=== PATIENT | female | born 1950 | race African-American/Black ===

== ENCOUNTER 2019-08-11 05:36 | Inpatient (IN) ==
--- NOTE | 2019-08-11 05:48 | PROVIDER DOCUMENTATION ---
HPI-Respiratory General - General Chief Complaint: Shortness of Breath Stated Complaint: SOB/PASSED OUT Time Seen by Provider: 08/11/19 05:46 Source: patient Allergies/Adverse Reactions: Patient Allergies Allergy/AdvReac Type Severity Reaction Status Date / Time No Known Allergies Allergy Verified 06/05/19 09:14 Home Medications: Home Medication List Medication Instructions Recorded Confirmed Last Taken Type ATORVAstatin [Lipitor] 10 mg PO HS 12/20/16 08/11/19 12/20/16 History Furosemide [Lasix] 20 mg PO DIRECTED 12/20/16 08/11/19 12/24/16 History Latanoprost 1 drp BOTH EYES QHS 12/31/16 08/11/19 12/28/16 History Albuterol 2.5MG/Ipratrop 0.5MG 3 ml INH RTQ4H #120 neb 03/11/18 08/11/19 Unknown Rx [Duoneb (A & A)] Amlodipine [Norvasc] 2.5 mg PO DAILY #30 tab 03/11/18 08/11/19 Unknown Rx Losartan [Cozaar] 25 mg PO DAILY #30 tab 03/11/18 08/11/19 Unknown Rx Albuterol Sulfate Inhaler 2 puff INH Q6H PRN PRN #1 inhaler 06/05/19 08/11/19 Unknown Rx [Ventolin Hfa] Albuterol Sulfate [Albuterol 2 puff IN Q4H PRN 06/05/19 08/11/19 Unknown History Sulfate Hfa] Azithromycin [Zithromax] 250 mg PO DAILY #1 packet 06/05/19 08/11/19 Unknown Rx - History of Present Illness-Resp Nature of Presenting Problem: Patient is a 68 year old black female with history of COPD and asthma complaining of increasing sob and wheezing for past 1 week. Denies chest pain or productive cough. Review of Systems - Adult - REVIEW OF SYSTEMS - ADULT Constitutional: denies: chills, fever Eyes: reports: no symptoms reported Ears, Nose, Mouth & Throat: reports: see HPI Cardiovascular: denies: chest pain Respiratory: reports: shortness of breath, wheezing Gastrointestinal: reports: no symptoms reported Genitourinary: reports: no symptoms reported Musculoskeletal: reports: no symptoms reported Integumentary: reports: no symptoms reported Neurological: reports: no symptoms reported Psychiatric: reports: no symptoms reported Endocrine: reports: no symptoms reported Hematologic/Lymphatic: reports: no symptoms reported Allergic/Immunologic: reports: no symptoms reported All Other Systems: Reviewed and Negative Past History - Adult - PAST MEDICAL HISTORY-ADULT Review of Records: reports: Old Records Reviewed, Nursing Assessment Review, Medications Reviewed, Social history reviewed & non-contributory. Major Childhood Illnesses: reports: denies history Cardiovascular: reports: HTN, hyperlipidemia Respiratory: reports: asthma Gastrointestinal: reports: denies history Obstetrical/Gynecological: reports: denies history Genitourinary: reports: denies history Musculoskeletal: reports: denies history Neurological: reports: denies history Psychiatric: reports: denies history Endocrine/Immune: reports: denies history Other Conditions: reports: denies history - PRIOR SURGERIES/PROCEDURES Surgical/Procedure History: reports: hysterectomy - PRIOR HOSPITALIZATIONS Prior Hospitalizations: reports: none - IMMUNIZATION STATUS Childhood Immunizations: See Nurse Assessment Flu Vaccine: See Nurse Assessment - FAMILY HISTORY Family History: reviewed, not pertinent Physical Exam-General - PHYSICAL EXAM-ADULT Initial Vital Signs Reviewed: Yes - CONSTITUTIONAL General Appearance: alert, no apparent distress, obese - EYES Eyes: sunken eyes (clear) - HEAD, EARS, NOSE, MOUTH & THROAT HENMT: normocephalic/atraumatic, moist mucous membranes, normal ENT inspection - NECK Neck: full range of motion, supple - RESPIRATORY Respiratory: no accessory muscle use, decreased breath sounds, wheezing - CARDIOVASCULAR Cardiovascular: regular rate, rhythm - GASTROINTESTINAL (ABDOMEN) Abdominal Exam: soft, no organomegaly - LYMPHATIC Lymphatic: no adenopathy - MUSCULOSKELETAL Back Exam: no CVA tenderness Extremity: non-tender Peripheral Pulses: radial (R): 2+ - SKIN Integumentary: normal color, normal turgor - NEUROLOGIC Neurologic: grossly normal - PSYCHIATRIC Psych/Mental Status: oriented x 3, anxious Progress - PLAN OF CARE/RESULTS Progress/Plan/Lab Results: Vital Signs - 8 hr 08/11/19 05:40 08/11/19 06:03 08/11/19 06:50 Temperature 97.3 F L Pulse Rate 90 90 94 H Respiratory Rate 18 14 18 Blood Pressure 111/074 113/73 O2 Sat by Pulse Oximetry 87 L 95 95 08/11/19 07:54 08/11/19 09:16 Temperature Pulse Rate 87 90 Respiratory Rate 17 17 Blood Pressure 131/99 116/82 O2 Sat by Pulse Oximetry 97 100 Laboratory Results - last 24 hr 08/11/19 08/11/19 08/11/19 05:59 05:59 05:59 WBC 10.18 RBC 4.84 Hgb 13.6 Hct 43.3 MCV 89.5 MCH 28.1 MCHC 31.4 L RDW Std Deviation 14.5 Plt Count 317 MPV 9.7 Immature Gran % (Auto) 0.1 Neut % (Auto) 31.4 L Lymph % (Auto) 56.5 H [place] % (Auto) 8.6 Eos % (Auto) 3.0 Baso % (Auto) 0.4 Immature Gran # (Auto) 0.01 Neut # (Auto) 3.19 Lymph # (Auto) 5.75 H [place] # (Auto) 0.88 H Eos # (Auto) 0.31 Baso # (Auto) 0.04 PT INR PTT (Actin FS) D-Dimer, Quantitative Specimen Type Sample Site pH pCO2 pO2 HCO3 Base Excess Oxyhemoglobin ABG O2 Sat (Calculated) ABG O2 Saturation ABG Carboxyhemoglobin ABG Methemoglobin Oliverio Test A-a O2 Difference Total Hemoglobin Lactate Liter Flow Blood Gas Modality FiO2 % Sodium 137 Potassium 3.5 Chloride 103 Carbon Dioxide 20 L Anion Gap 14 BUN 12 Creatinine 0.9 Estimated GFR/1.73 m2 > 60 BUN/Creatinine Ratio 13 Glucose 208 H Calculated Osmolality 280 Calcium 8.3 L Total Bilirubin 0.20 AST 42 H ALT 45 H Alkaline Phosphatase 96 Troponin T < 0.010 [id number] Pept Total Protein 7.1 Albumin 3.9 Globulin 3.0 Albumin/Globulin Ratio 1.0 Plasma Lactate Urine Source Urine Color Urine Clarity Urine Turbidity Urine pH Ur Specific [place] Urine Protein Ur Glucose (Stick) Urine Ketones Ur Ketones (Stick) Urine Blood Urine Nitrite Urine Bilirubin Urine Urobilinogen Urobilinogen Dipstick Urine Leukocytes Urine WBC (Auto) Urine RBC (Auto) U Epithel Cells (Auto) Urine Bacteria (Auto) Urine Microscopic RBC Urine WBC Urine Microscopic WBC Ur Epithelial Cells Urine Crystals Urine Bacteria Urine Casts Urine Yeast Urine Glucose Influenza A (Rapid) Influenza B (Rapid) 08/11/19 08/11/19 08/11/19 05:59 05:59 05:59 WBC RBC Hgb Hct MCV MCH MCHC RDW Std Deviation Plt Count MPV Immature Gran % (Auto) Neut % (Auto) Lymph % (Auto) [place] % (Auto) Eos % (Auto) Baso % (Auto) Immature Gran # (Auto) Neut # (Auto) Lymph # (Auto) [place] # (Auto) Eos # (Auto) Baso # (Auto) PT 16.2 H INR 1.23 PTT (Actin FS) 26.0 D-Dimer, Quantitative 9.53 H Specimen Type Sample Site pH pCO2 pO2 HCO3 Base Excess Oxyhemoglobin ABG O2 Sat (Calculated) ABG O2 Saturation ABG Carboxyhemoglobin ABG Methemoglobin Oliverio Test A-a O2 Difference Total Hemoglobin Lactate Liter Flow Blood Gas Modality FiO2 % Sodium Potassium Chloride Carbon Dioxide Anion Gap BUN Creatinine Estimated GFR/1.73 m2 BUN/Creatinine Ratio Glucose Calculated Osmolality Calcium Total Bilirubin AST ALT Alkaline Phosphatase Troponin T [id number] Pept 143 Total Protein Albumin Globulin Albumin/Globulin Ratio Plasma Lactate Urine Source Urine Color Urine Clarity Urine Turbidity Urine pH Ur Specific [place] Urine Protein Ur Glucose (Stick) Urine Ketones Ur Ketones (Stick) Urine Blood Urine Nitrite Urine Bilirubin Urine Urobilinogen Urobilinogen Dipstick Urine Leukocytes Urine WBC (Auto) Urine RBC (Auto) U Epithel Cells (Auto) Urine Bacteria (Auto) Urine Microscopic RBC Urine WBC Urine Microscopic WBC Ur Epithelial Cells Urine Crystals Urine Bacteria Urine Casts Urine Yeast Urine Glucose Influenza A (Rapid) Influenza B (Rapid) 08/11/19 08/11/19 08/11/19 06:03 06:06 06:43 WBC RBC Hgb Hct MCV MCH MCHC RDW Std Deviation Plt Count MPV Immature Gran % (Auto) Neut % (Auto) Lymph % (Auto) [place] % (Auto) Eos % (Auto) Baso % (Auto) Immature Gran # (Auto) Neut # (Auto) Lymph # (Auto) [place] # (Auto) Eos # (Auto) Baso # (Auto) PT INR PTT (Actin FS) D-Dimer, Quantitative Specimen Type ARTERIAL Sample Site L RADIAL pH 7.36 pCO2 39 pO2 77 HCO3 22.4 Base Excess -3.1 L Oxyhemoglobin 94.8 L ABG O2 Sat (Calculated) 19.2 ABG O2 Saturation 99.2 ABG Carboxyhemoglobin 4.00 H ABG Methemoglobin 0.4 Oliverio Test YES A-a O2 Difference 74.0 Total Hemoglobin 14.4 Lactate 3.00 H Liter Flow 2.0 Blood Gas Modality CANNULA FiO2 % 28.0 Sodium Potassium Chloride Carbon Dioxide Anion Gap BUN Creatinine Estimated GFR/1.73 m2 BUN/Creatinine Ratio Glucose Calculated Osmolality Calcium Total Bilirubin AST ALT Alkaline Phosphatase Troponin T Iag-D-Ftsdlszipbb Pept Total Protein Albumin Globulin Albumin/Globulin Ratio Plasma Lactate 2.8 H Urine Source Urine Color Urine Clarity Urine Turbidity Urine pH Ur Specific [place] Urine Protein Ur Glucose (Stick) Urine Ketones Ur Ketones (Stick) Urine Blood Urine Nitrite Urine Bilirubin Urine Urobilinogen Urobilinogen Dipstick Urine Leukocytes Urine WBC (Auto) Urine RBC (Auto) U Epithel Cells (Auto) Urine Bacteria (Auto) Urine Microscopic RBC Urine WBC Urine Microscopic WBC Ur Epithelial Cells Urine Crystals Urine Bacteria Urine Casts Urine Yeast Urine Glucose Influenza A (Rapid) NEGATIVE Influenza B (Rapid) NEGATIVE 08/11/19 08/11/19 08/11/19 08:31 09:01 09:07 WBC RBC Hgb Hct MCV MCH MCHC RDW Std Deviation Plt Count MPV Immature Gran % (Auto) Neut % (Auto) Lymph % (Auto) [place] % (Auto) Eos % (Auto) Baso % (Auto) Immature Gran # (Auto) Neut # (Auto) Lymph # (Auto) [place] # (Auto) Eos # (Auto) Baso # (Auto) PT INR PTT (Actin FS) D-Dimer, Quantitative Specimen Type Sample Site pH pCO2 pO2 HCO3 Base Excess Oxyhemoglobin ABG O2 Sat (Calculated) ABG O2 Saturation ABG Carboxyhemoglobin ABG Methemoglobin Oliverio Test A-a O2 Difference Total Hemoglobin Lactate Liter Flow Blood Gas Modality FiO2 % Sodium Potassium Chloride Carbon Dioxide Anion Gap BUN Creatinine Estimated GFR/1.73 m2 BUN/Creatinine Ratio Glucose Calculated Osmolality Calcium Total Bilirubin AST ALT Alkaline Phosphatase Troponin T Grz-M-Jadmsiihfzd Pept Total Protein Albumin Globulin Albumin/Globulin Ratio Plasma Lactate 3.1 H Urine Source CLEAN CATCH Cancelled Urine Color YELLOW Cancelled Urine Clarity CLEAR Urine Turbidity Cancelled Urine pH 6.5 Cancelled Ur Specific [place] 1.015 Cancelled Urine Protein 30 A Cancelled Ur Glucose (Stick) Cancelled Urine Ketones NEGATIVE Ur Ketones (Stick) Cancelled Urine Blood TRACE A Cancelled Urine Nitrite NEGATIVE Cancelled Urine Bilirubin NEGATIVE Cancelled Urine Urobilinogen 0.2 Urobilinogen Dipstick Cancelled Urine Leukocytes Cancelled Urine WBC (Auto) Cancelled Urine RBC (Auto) Cancelled U Epithel Cells (Auto) Cancelled Urine Bacteria (Auto) Cancelled Urine Microscopic RBC <10 Urine WBC NEGATIVE Urine Microscopic WBC <10 Ur Epithelial Cells <10 Urine Crystals NONE SEEN Urine Bacteria NEGATIVE Urine Casts NONE SEEN Urine Yeast NONE SEEN Urine Glucose NEGATIVE Influenza A (Rapid) Influenza B (Rapid) Orders Category Date Time Status Cardiac Monitoring DIRECTED Care 08/11/19 05:48 Active Notify MD of + Sepsis Screen NOW Care 08/11/19 06:48 Active Notify Physician As Ordered Care 08/11/19 06:48 Active CHEST-PORTABLE [RAD] Stat Exams 08/11/19 05:[address] HEAD W/O CONTRAST [CT] Stat Exams 08/11/19 07:14 Completed CTA [CT ANGIOGRM PULMONARY ARTERIES] [CT] Stat Exams 08/11/19 08:22 Completed ABG [RESP] Routine Lab 08/11/19 06:06 Completed BLOOD CULTURE [BLDCUL] Stat Lab 08/11/19 06:43 Results CBC WITH ELECTRONIC DIFF [HEME] Stat Lab 08/11/19 05:59 Completed CMP [COMPREHENSIVE METABOLIC PANEL] [CHEM] Stat Lab 08/11/19 05:59 Completed D-DIMER [COAG] Stat Lab 08/11/19 05:[address] Stat Lab 08/11/19 06:03 Completed LACTATE, PLASMA [CHEM] Lab 08/11/19 06:43 Completed LACTATE, PLASMA [CHEM] Lab 08/11/19 09:07 Received LACTATE, PLASMA [CHEM] Lab 08/11/19 13:00 Uncollected PRO B-NATRIURETIC PEPTIDE Stat Lab 08/11/19 08:31 Ordered PROTIME WITH INR [COAG] Stat Lab 08/11/19 05:59 Completed PTT [COAG] Stat Lab 08/11/19 05:59 Completed TROPONIN T Stat Lab 08/11/19 05:59 Completed bnp [PRO B-NATRIURETIC PEPTIDE] Stat Lab 08/11/19 05:59 Completed 0.9% Sodium Chloride Inj [Ns] 1,000 ml Med 08/11/19 06:45 Discontinued IV 999 mls/hr Albuterol 2.5MG/Ipratrop 0.5MG [Duoneb (A & A)] Med 08/11/19 05:54 Discontinued 3 ml INH NOW ONE Azithromycin 500 mg/Ns [Zithromax 500 mg/Ns] Med 08/11/19 07:15 Discontinued 500 mg in 250 ml IV NOW CefTRIAXONE [Rocephin] 1 gm Med 08/11/19 06:46 Discontinued 0.9% Sodium Chloride Inj [Ns] 50 ml IV NOW Heparin Med 08/11/19 09:44 Discontinued 5,000 unit IV NOW ONE Heparin 25,000 Units/D5w Med 08/11/19 10:00 Active 25,000 unit in 250 ml IV 11.43 mls/hr Aerosol Treatments Routine Oth 08/11/19 05:54 Completed Aerosol Treatments Stat Oth 08/11/19 05:54 Completed Oxygen Device Stat Oth 08/11/19 05:46 Completed Pulse Oximetry Stat Oth 08/11/19 05:48 Completed EKG [EKG] Routine Ther 08/11/19 Draft Result Diagrams: 08/11/19 05:59 08/11/19 05:59 - REASSESSMENT Reassessment #1 Time Reassessed: 08:24 Status: improving (Seen and examined by me. Patient care discussed with Dr. Bowling at shift change. Patient has SOB, hypoxemia, possible pneumonia/sepsis, poss CHF, poss DVT. Patient reported syncopal episode this am with hitting head and "seeing stars" now. Has been given IVF, rocephin/zithromax.) Reassessment #2 Time Reassessed: 10:00 Status: improving (Patient developed a right Subconjunctival hematoma after coughing sepisode during CT. I did warn her (and informed hospitalist) that it will worsen on heparin. Patient started on heparin drip as she has multiple bilateral PEs and small saddle embolism.) - EKG 1 Time of EKG reading by physician:: 05:55 EKG Read and Signed by:: Bakari Bowling Rate: 91 Rhythm: NSR [place]: left Comments: no STEMI - XRAY 1 XRAY Study: Chest Impression: Abnormal ( EXAM: CHEST-PORTABLE - 08/11/2019 HISTORY: cough,sob TECHNIQUE: Portable chest COMPARISON: 06/05/2019 FINDINGS: Heart size appears the upper range of normal. There is prominence of central vascular markings. There is no dense consolidation, pleural effusion, or pneumothorax identified. IMPRESSION: Apparent central vascular congestion. No discrete pneumonia. Electronically signed by Khadar Orozco 08/11/2019 7:35 AM 08/11/19 0735 Interpreting Physician: Khadar Orozco MD Dictated Date/Time: 08/11/19 0789 cc: Bakari Bowling MD; Markos Dumont MD), See EMR Report - CT/MRI 1 CT Study: Head Impression: Normal, See EMR Report ( EXAM: CT HEAD W/O CONTRAST - 08/11/2019 HISTORY: head injury TECHNIQUE: CT head without contrast COMPARISON: None. FINDINGS: There are streak artifacts which limit detail at the base the brain. There is no evidence of intracranial hemorrhage, mass effect, midline shift, or hydrocephalus. There is no evidence of infarct, although acute infarcts may not be immediately visible. There is no evidence of skull fracture. Visualized portions of paranasal sinuses and mastoid air cells appear clear. IMPRESSION: Streak artifacts which limit detail at base of brain. No visible acute intracranial abnormality. This exam was performed using automated exposure control, adjustment of mA or kV according to patient size, and/or use of iterative reconstruction technique. Electronically signed by Khadar Orozco 08/11/2019 7:46 AM 08/11/19 [id number] Interpreting Physician: Khadar Orozco MD Dictated Date/Time: 08/11/19 0837 cc: Margarito Chambers MD; Markos Dumont MD) 2 CT Study: Angiogram Impression: Abnormal (EXAM: CT ANGIOGRAM PULMONARY ARTERIES - 08/11/2019 HISTORY: short of breath, syncope, elevated d-dimer TECHNIQUE: CT angiogram pulmonary arteries with intravenous contrast. Axial, coronal, and 3-D MIP images are obtained. COMPARISON: None. FINDINGS: There is a thin saddle embolus which extends across the branch point of the main pulmonary artery to the branch points of the right main and left main pulmonary arteries. There are pulmonary emboli at the branch points of the bilateral pulmonary arteries, with extension into the bilateral pulmonary artery branches. There is no indication of aortic dissection. The lungs appear essentially clear. There is no pleural effusion or pneumothorax identified. There is a large cyst noted at the upper right kidney. IMPRESSION: Bilateral pulmonary emboli. There is also a saddle embolus across the branch point of the main pulmonary artery. This report was discussed with Dr. Chambers on 08/11/2019 at 9:43 AM and was readback. Electronically signed by Khadar Orozco 08/11/2019 9:45 AM 08/11/19 [id number] Interpreting Physician: Khadar Orozco MD Dictated Date/Time: 08/11/19 0939 cc: Margarito Chambers MD; Markos Dumont MD), See EMR Report - CONSULTS/PCP/HOSPITALIST Notification #1 *Consult/PCP/Hospitalist*: Pinot Time Discussed: 10:03 Consult Disposition: Will see in ED, Admit - CHANGE OF SHIFT REPORT (ED Provider) 1 Report Given and Care Transferred to:: Dr. Chambers Time of Transfer: 07:00 Items Pending: Labs Departure - Departure Date of Disposition Decision: 08/11/19 Time of Disposition Decision: 10:03 DIAGNOSIS: Hypoxemia requiring supplemental oxygen, Syncope and collapse Acute pulmonary embolism without acute cor pulmonale Qualifiers: Pulmonary embolism type: saddle Qualified Code(s): I26.92 - Saddle embolus of pulmonary artery without acute cor pulmonale Subconjunctival hematoma Qualifiers: Laterality: right Qualified Code(s): H11.31 - Conjunctival hemorrhage, right eye Disposition: ADMITTED INPATIENT 09 Certified Medical Emergency: Emergent Condition: Critical Referrals and Follow-Ups: Markos Dumont MD [Primary Care Provider] - - Critical Care Note This patient required my direct & personal management of CC.: Yes Total Time (mins): 50 Critical Care Statement: This patient required my direct personal management to treat or rule out processes, the absence of which, could potentiallly result in sudden, clinically significant life or limb threatening deterioration. Attestation - Physician/ JESSICA Attestation Patient care was provided by Advanced Practice Provider:: No The physician spent face to face time with patient:: Yes Advanced Practice Provider documentation review:: Supervising physician onsite and consulted in the evaluation and care of this patient. The physician did have a face to face encounter with the patient.
[2019-08-11] MEDS ORDERED: DUONEB (A & A) INH ONE (05:54)
[2019-08-11 06:23] LABS: AGAP 14; ALBUMIN 3.9 g/dL (3.5-5.0); ALKALINE PHOSPHATASE 96 U/L (32-104); BUN 12 mg/dL (8-22); CALCIUM 8.3 mg/dL (8.8-10.2); CHLORIDE 103 mmol/L (98-107); COSMO 280; CREATININE 0.9 mg/dL (0.5-0.9); ESTIMATED GFR > 60; GLUCOSE 208 mg/dL (70-104); GOT 42 U/L (10-30); GPT 45 U/L (10-36); POTASSIUM 3.5 mmol/L (3.5-5.1); SODIUM 137 mmol/L (136-145); TCO2 20 mmol/L (25-35); TOTAL PROTEIN 7.1 g/dL (6.3-8.3)
[2019-08-11 06:26] LABS: BASO# 0.04 X1000 (0.0-0.2); BASO% 0.4 % (0.0-0.8); EOS# 0.31 X1000 (0.0-0.7); HEMATOCRIT 43.3 % (37.0-47.0); HEMOGLOBIN 13.6 g/dL (12.0-16.0); IMM GRAN# 0.01 X1000 (0.0-0.04); IMM GRAN% 0.1 % (0.0-0.5); LYMPH# 5.75 X1000 (1.2-3.4); LYMPH% 56.5 % (20.5-51.1); MCH 28.1 PG (27-31); MCHC 31.4 g/dL (33-37); MCV 89.5 FL (81-99); MONO# 0.88 X1000 (0.11-0.59); MONO% 8.6 % (1.7-9.3); MPV 9.7 FL (7.4-10.4); NEUT# 3.19 X1000 (1.4-6.5); NEUT% 31.4 % (42.2-75.2); PLT 317 X1000 (130-400); RBC 4.84 XMIL (4.2-5.4); RDW 14.5 % (11.5-14.5); WBC 10.18 X1000 (4.8-10.8)
[2019-08-11 06:30] LABS: BE -3.1 mmoll (-3.0-3.0); BLOOD TYPE ARTERIAL; HCO3-(ACT) 22.4 mmoll (20.0-26.0); METHB 0.4 % (0.0-1.5); O2(CT) 19.2 mL/dL (15.0-23.0); O2HB 94.8 % (95.0-99.0); PCO2(98.6) 39 mmHg (35-45); PO2(98.6) 77 mmHg (60-100); SAMPLE BLOOD; SAO2 99.2 % (95.0-100.0); THB 14.4 g/dL (11.5-17.4); pH(98.6) 7.36 (7.35-7.45)
[2019-08-11 06:32] LABS: ALLEN TEST YES; MODALITY CANNULA
[2019-08-11 06:44] LABS: INFLUENZA A NEGATIVE (NEGATIVE); INFLUENZA B NEGATIVE (NEGATIVE)
[2019-08-11] MEDS ORDERED: NS 1,000 ML IV ONE (06:45)
[2019-08-11] MEDS ORDERED: ROCEPHIN 1 GM in NS 50 ML IV ONE (06:46)
[2019-08-11 07:02] LABS: INR 1.23; PROTIME 16.2 Seconds (11.0-16.0)
[2019-08-11] MEDS ORDERED: ZITHROMAX 500 MG/NS 500 MG/250 ML IVPB IV ONE (07:15)
--- NOTE | 2019-08-11 07:38 | Diag Imaging Result Doc PS360 ---
EXAM: CHEST-PORTABLE - 08/11/2019 HISTORY: cough,sob TECHNIQUE: Portable chest COMPARISON: 06/05/2019 FINDINGS: Heart size appears the upper range of normal. There is prominence of central vascular markings. There is no dense consolidation, pleural effusion, or pneumothorax identified. IMPRESSION: Apparent central vascular congestion. No discrete pneumonia. Electronically signed by Khadar Orozco 08/11/2019 7:35 AM
--- NOTE | 2019-08-11 07:48 | Diag Imaging Result Doc PS360 ---
EXAM: CT HEAD W/O CONTRAST - 08/11/2019 HISTORY: head injury TECHNIQUE: CT head without contrast COMPARISON: None. FINDINGS: There are streak artifacts which limit detail at the base the brain. There is no evidence of intracranial hemorrhage, mass effect, midline shift, or hydrocephalus. There is no evidence of infarct, although acute infarcts may not be immediately visible. There is no evidence of skull fracture. Visualized portions of paranasal sinuses and mastoid air cells appear clear. IMPRESSION: Streak artifacts which limit detail at base of brain. No visible acute intracranial abnormality. This exam was performed using automated exposure control, adjustment of mA or kV according to patient size, and/or use of iterative reconstruction technique. Electronically signed by Khadar Orozco 08/11/2019 7:46 AM
--- NOTE | 2019-08-11 08:32 | EKG Report ---
Test Performed on : 08/11/2019 05:54:16 AM Test Reason : ER Blood Pressure : / mmHG Vent. Rate : 091 BPM Atrial Rate : 091 BPM P-R Int : 138 ms QRS Dur : 112 ms QT Int : 428 ms P-R-T Axes : 041 -32 026 degrees QTc Int : 526 ms Poor data quality, interpretation may be adversely affected Normal sinus rhythm. Left axis deviation Right bundle branch block Abnormal ECG When compared with ECG of 05-MAR-2018 07:35, Right bundle branch block is now present Unconfirmed Result
[2019-08-11 09:11] LABS: URINE SOURCE CLEAN CATCH
[2019-08-11 09:16] LABS: COLOR YELLOW; URINE BACTERIA NEGATIVE /HFP; URINE CAST NONE SEEN /LPF; URINE CRYSTAL NONE SEEN /HPF; URINE EPITHELIAL CELLS <10 /HPF (<10); URINE RBC <10 /HPF (<10); URINE WBC <10 /HPF (<10); URINE YEAST NONE SEEN /HPF
[2019-08-11 09:17] LABS: CLARITY CLEAR (CLEAR)
[2019-08-11 09:18] LABS: GLUCOSE URINE NEGATIVE (NEGATIVE); SP GRAVITY URINE 1.015
[2019-08-11 09:19] LABS: BLOOD URINE TRACE (NEGATIVE); PH URINE 6.5
[2019-08-11 09:20] LABS: PROTEIN URINE 30 mg/dL (NEGATIVE)
[2019-08-11 09:22] LABS: BILIRUBIN URINE NEGATIVE (NEGATIVE)
[2019-08-11 09:24] LABS: NITRITE URINE NEGATIVE (NEGATIVE); UROBILINOGEN URINE 0.2 EU/dL (0.2-1.0)
[2019-08-11 09:25] LABS: LEUKOCYTES URINE NEGATIVE (NEGATIVE)
[2019-08-11 09:26] LABS: KETONE URINE NEGATIVE (NEGATIVE)
[2019-08-11] MEDS ORDERED: HEPARIN IV ONE (09:44)
--- NOTE | 2019-08-11 09:47 | Diag Imaging Result Doc PS360 ---
EXAM: CT ANGIOGRAM PULMONARY ARTERIES - 08/11/2019 HISTORY: short of breath, syncope, elevated d-dimer TECHNIQUE: CT angiogram pulmonary arteries with intravenous contrast. Axial, coronal, and 3-D MIP images are obtained. COMPARISON: None. FINDINGS: There is a thin saddle embolus which extends across the branch point of the main pulmonary artery to the branch points of the right main and left main pulmonary arteries. There are pulmonary emboli at the branch points of the bilateral pulmonary arteries, with extension into the bilateral pulmonary artery branches. There is no indication of aortic dissection. The lungs appear essentially clear. There is no pleural effusion or pneumothorax identified. There is a large cyst noted at the upper right kidney. IMPRESSION: Bilateral pulmonary emboli. There is also a saddle embolus across the branch point of the main pulmonary artery. This report was discussed with Dr. Chambers on 08/11/2019 at 9:43 AM and was readback. Electronically signed by Khadar Orozco 08/11/2019 9:45 AM
[2019-08-11] MEDS ORDERED: HEPARIN 25,000 UNITS/D5W 25,000 UNIT/250 ML IV.SOLN IV SCH (10:00)
[2019-08-11] MEDS: LOVENOX SUBQ SCH ×2 (10:43→23:44)
[2019-08-11] MEDS ORDERED: TYLENOL PO PRN (11:35)
[2019-08-11] MEDS ORDERED: ZOFRAN IV PRN (11:35)
--- NOTE | 2019-08-11 12:22 | HISTORY AND PHYSICAL ---
PRIMARY CARE PROVIDERS: Markos Dumont MD CHIEF COMPLAINT: Shortness of breath, fell out. HISTORY OF PRESENT ILLNESS: Ms. Estrella is a 68-year-old female with past medical history of asthma, hypertension, hyperlipidemia, glaucoma who reports that she has been short of breath for a week a week or so, but it was shortness of breath that was unusual from her usual shortness of breath. It was not relieved by her inhalers. Then on Sunday, she began to start experiencing weakness and feeling like she was going to pass out. She was at work this morning around 5 a.m. She reports that she did pass out because she could not breathe. She was brought in to the ED where a full workup was done. Chest x-ray showed apparent central vascular congestion but no pneumonia. Head CT showed streak artifacts which limit the detail at the base of the brain, but there were no visible acute intracranial abnormalities. Blood work showed no white count. She did have elevated plasma lactate with no clear source of infection. She did have an elevated D-dimer at 9.53, which prompted a CTA of the chest that showed bilateral PEs as well as saddle embolus across the branch point of the main pulmonary artery. She was initiated on full-dose Lovenox and will continue on full-dose Lovenox b.i.d. and we will do a hypercoagulable workup. She reports no recent travel. No surgeries. However, she does sit for a prolonged time. At work, as well as at home. She is not very active secondary to her asthma. We will also get an echocardiogram as well as venous Dopplers to rule out DVT. However, she denies any calf tenderness. Continue with further evaluation and treatment. PAST MEDICAL HISTORY: As per HPI. PAST SURGICAL HISTORY: Cervical surgery. SOCIAL HISTORY: She lives at home with her daughter. She was a 2-3 cigarette smoker per day for more than 40 years. No alcohol or illicit drug use. 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 FAMILY HISTORY: No history of any blood clots or PE. REVIEW OF SYSTEMS: Completely negative except for those mentioned in HPI. The patient is positive for shortness of breath that is more than her normal for about a week or so. Her wheezing was relieved by her inhalers. She has had a feeling of weakness and passing out. She did report that she passed out at work this a.m. No chest pain. No heart palpitation. No abdominal pain. No nausea, vomiting, diarrhea. No calf pain. ALLERGIES: No known allergies. HOME MEDICATIONS: 1. Latanoprost 1 drop both eyes daily. 2. Albuterol sulfate 2 puffs inhaled q.4 hours p.r.n. shortness of breath. 3. Lasix 20 mg p.o. as directed. 4. Lipitor 10 mg p.o. at bedtime. 5. Cozaar 25 mg p.o. daily. 6. DuoNeb 3 mL inhaled q.4 hours. 7. Ventolin 2 puffs inhaled q.6 hours p.r.n. PHYSICAL EXAMINATION: VITAL SIGNS: Temperature is 98.7 degrees, heart rate 87, respirations 18, blood pressure 121/98. O2 is 98% on 2 L nasal cannula initially 87% on room air. GENERAL: Ms. Estrella is a pleasant 68-year-old female who is sitting up in the bed in no acute distress. HEENT: Atraumatic, normocephalic. PERRL. She does have a hemorrhage to her right conjunctiva. Mucous membranes are moist. NECK: Supple. Trachea midline. No JVD. CARDIOVASCULAR: S1, S2 appreciated. No murmurs, gallops, or rubs noted. RESPIRATORY: Lung sounds clear bilaterally. Bilaterally decreased in the bases. ABDOMEN: Obese, soft, nontender, nondistended. Positive bowel sounds 4 quadrants. EXTREMITIES: Generalized lower extremity edema, right greater than left around the ankle. There is no pitting. SKIN: Warm, dry and intact. DIAGNOSTIC DATA: Per HPI. LABORATORY DATA: White count 10, hemoglobin and hematocrit 13 and 43, platelet count is 317,000. D-dimer 9.53. Sodium 137, potassium 3.5, BUN 12, creatinine 0.9, blood glucose is 208, AST 42, ALT 45. Troponin less than 0.010, plasma lactate is 2.8 and 3.1. Urinalysis negative for nitrates, negative for bacteria. Flu A and B negative. ASSESSMENT AND PLAN: 1. Bilateral pulmonary embolus with saddle embolus. The patient was initiated on full dose Lovenox b.i.d. We will do a full hypercoagulable workup. Check echocardiogram. Venous Dopplers, supplemental O2. Bed rest for 24 hours. She reports no recent travels. No recent surgeries. No history of deep venous thrombosis, pulmonary embolus or family history of any hypercoagulable disorders. She does report that she does sit at work as well as at home for long periods of time. She does lead a very sedentary line. We will see if she is up-to-date on cancer screenings as well. 2. Syncopal episode at work. The patient is now awake, alert, and oriented, hemodynamically stable. Head CT was negative. 3. Hypoxemia upon arrival, improved with supplemental O2. History of asthma. She does not appear to be in exacerbation. We will provide her with DuoNeb p.r.n. 4. Hypertension. We will start any antihypertensives in the a.m. Watch her blood pressures closely. 5. Right conjunctival hemorrhage. Aware. 6. Hyperlipidemia continue statin. 7. Glaucoma. Continue eye drops. 8. Hyperglycemia. We will check hemoglobin A1c. Patient is not a known diabetic. 9. Tobacco use history. 10. Further recommendation to follow physician evaluation, laboratory and diagnostic data. Dictated by JORGE Byrne for Yuriy Merritt MD cc: MD Markos Delgado MD
[2019-08-11] MEDS ORDERED: PNEUMOVAX 23 IM ONE (13:00)
--- NOTE | 2019-08-11 13:03 | HISTORY AND PHYSICAL ---
ADDENDUM: SUBJECTIVE: The patient has no major complaints. OBJECTIVE: Vital Signs: Blood pressure 142/78, heart rate of 88, respiratory rate 21, temperature 97.8 degrees, saturating 100% on 3 L. Cardiovascular: Regular rate and rhythm. Pulmonary: Bilateral breath sounds, diminished at the bases. Extremities: She does have swelling in her feet. HISTORY: Briefly, this is a 68-year-old female, asthmatic, who has been having increasing shortness of breath. She had an episode today where I think she passed out. She says she was out for a little bit of time. She did notice maybe a week or two ago, some pain and swelling in her right ankle. She has had that before. She is fairly sedentary at baseline between work and home, but has no other risk factors for DVT. She is up-to-date on her mammograms, pelvic exam. She has had a colonoscopy. I think she is due for a colonoscopy, but her last one was unremarkable. No family history of DVT, PE, sudden . She did have a brother who recently because of other issues. She is not a smoker currently. She does not use hormone treatments. Her pulmonary exam is pretty benign, but in any case, she has had an acute PE with a near saddle embolism with hypoxic respiratory failure. We will anticoagulate, pursue workup, and follow closely. She has no evidence of decompensation. Vital signs are stable. The only major issue is just the hypoxia. We will go ahead and treat her with Lovenox until I feel she is a little bit more stable, and then transition her to NOAC, pursue hypercoagulable workup, and follow. This is a [id number] encounter note with Roxanne Dunham. cc: Yuriy Merritt MD
[2019-08-11] MEDS: DUONEB (A & A) INH SCH ×3 (14:53→22:41)
--- NOTE | 2019-08-11 17:22 | Vascular Study Report ---
EXAM: Venous U/S Bilateral Legs - 08/11/2019 HISTORY: r/o dvt TECHNIQUE: Bilateral lower extremity Doppler venous ultrasound COMPARISON: 11/19/2013 right lower extremity Doppler venous ultrasound FINDINGS: There is possible thrombus in the right gastrocnemius vein. The remainder of the deep veins of the bilateral lower extremities demonstrate flow, with compressibility and augmentation. There are no other filling defects identified. IMPRESSION: Possible thrombus in right gastrocnemius vein. The remainder of the deep veins of the bilateral lower extremities show no evidence of thrombus. Electronically signed by Khadar Orozco 08/11/2019 5:20 PM
[2019-08-11] MEDS: XALATAN 0.005% OPH SOLN BOTH EYES SCH (23:21)
[2019-08-11] MEDS: LIPITOR PO SCH (23:21)
[2019-08-12] MEDS: DUONEB (A & A) INH SCH ×6 (02:54→22:49)
[2019-08-12 06:24] LABS: HEMATOCRIT 44.3 % (37.0-47.0); MCH 28.4 PG (27-31); MCHC 31.6 g/dL (33-37); MCV 89.9 FL (81-99); MPV 9.9 FL (7.4-10.4); RBC 4.93 XMIL (4.2-5.4); RDW 14.9 % (11.5-14.5); WBC 8.91 X1000 (4.8-10.8)
[2019-08-12 06:45] LABS: SODIUM 139 mmol/L (136-145)
[2019-08-12 06:47] LABS: CHLORIDE 103 mmol/L (98-107); POTASSIUM 4.2 mmol/L (3.5-5.1)
[2019-08-12 06:48] LABS: AGAP 14; GLUCOSE 143 mg/dL (70-104); TCO2 23 mmol/L (25-35)
[2019-08-12 06:49] LABS: ALKALINE PHOSPHATASE 82 U/L (32-104); BUN 9 mg/dL (8-22); CALCIUM 8.8 mg/dL (8.8-10.2); COSMO 279; CREATININE 0.8 mg/dL (0.5-0.9); GOT 24 U/L (10-30); GPT 35 U/L (10-36); MAGNESIUM 2.1 mg/dL (1.5-2.7)
[2019-08-12] MEDS: PRILOSEC PO SCH (06:51)
[2019-08-12 07:57] LABS: HEMOGLOBIN A1C 6.6 % (4.8-6.0)
--- NOTE | 2019-08-12 08:10 | Diag Imaging Result Doc PS360 ---
CHEST-PORTABLE - 08/12/2019 INDICATION: sob COMPARISON: 08/11/2019 FINDINGS: Stable mild pulmonary vascular congestion. No infiltrates or edema. No pneumothorax or pleural effusion. Heart size is top normal. IMPRESSION: Pulmonary vascular congestion. Electronically signed by Mitesh Ospina 08/12/2019 8:07 AM
[2019-08-12] MEDS: COZAAR PO SCH (09:18)
[2019-08-12] MEDS: NORVASC PO SCH (09:18)
--- NOTE | 2019-08-12 10:40 | EKG Report ---
Test Performed on : 08/12/2019 08:12:43 AM Test Reason : follow up Blood Pressure : / mmHG Vent. Rate : 079 BPM Atrial Rate : 079 BPM P-R Int : 152 ms QRS Dur : 084 ms QT Int : 410 ms P-R-T Axes : 096 -41 -46 degrees QTc Int : 470 ms Normal sinus rhythm. Left axis deviation Pulmonary disease pattern T wave abnormality, consider inferior ischemia T wave abnormality, consider anterolateral ischemia Abnormal ECG When compared with ECG of 11-AUG-2019 05:54, (Unconfirmed) Right bundle branch block is no longer present Confirmed by Darrell Everett MD ([id number]) on 08/28/2019 1:53:17 AM
[2019-08-12] MEDS: LOVENOX SUBQ SCH ×2 (12:11→21:14)
--- NOTE | 2019-08-12 15:39 | PROGRESS NOTE ---
DATE: 08/12/2019 SUBJECTIVE: Patient has no major complaints. OBJECTIVE: Vital Signs: Blood pressure is 113/75, heart rate of 69, respiratory rate of 20, temperature 97.8 degrees, 94% on 2 L. Cardiovascular: Regular rate and rhythm. Pulmonary: Bilateral breath sounds. Clear to auscultation. GI: Soft, nontender, nondistended. Bowel sounds are positive. LABORATORY DATA: White count is stable at 8, hemoglobin and hematocrit 14 and 44, platelets 319,000. Basic was normal. PROBLEM LIST: 1. Acute pulmonary embolism, questionable right lower extremity deep vein thrombosis. She is on Lovenox and seems to be improving. I think we can probably switch her to Eliquis soon. 2. Hypoxic respiratory failure. Working on weaning her O2. She did not have evidence of a large infarct, so we will continue to monitor that. DISPOSITION: I think we will anticipate discharge soon, hopefully in the next 1 to 2 days pending her clinical status. I am also waiting her echocardiogram report. cc: Yuriy Merritt MD
[2019-08-12] MEDS: XALATAN 0.005% OPH SOLN BOTH EYES SCH (21:13)
[2019-08-12] MEDS: LIPITOR PO SCH (21:13)
[2019-08-13] MEDS: DUONEB (A & A) INH SCH ×3 (02:37→11:04)
[2019-08-13 05:50] LABS: AGAP 12; BUN 11 mg/dL (8-22); CALCIUM 8.7 mg/dL (8.8-10.2); CHLORIDE 102 mmol/L (98-107); COSMO 279; CREATININE 0.9 mg/dL (0.5-0.9); ESTIMATED GFR > 60; GLUCOSE 133 mg/dL (70-104); POTASSIUM 3.9 mmol/L (3.5-5.1); SODIUM 139 mmol/L (136-145); TCO2 26 mmol/L (25-35)
[2019-08-13 06:01] LABS: BASO# 0.02 X1000 (0.0-0.2); BASO% 0.2 % (0.0-0.8); EOS# 0.41 X1000 (0.0-0.7); EOS% 4.5 % (0.0-10.0); HEMATOCRIT 40.8 % (37.0-47.0); HEMOGLOBIN 12.9 g/dL (12.0-16.0); IMM GRAN# 0.02 X1000 (0.0-0.04); IMM GRAN% 0.2 % (0.0-0.5); LYMPH# 3.73 X1000 (1.2-3.4); LYMPH% 41.2 % (20.5-51.1); MCH 28.4 PG (27-31); MCHC 31.6 g/dL (33-37); MCV 89.9 FL (81-99); MONO# 0.84 X1000 (0.11-0.59); MONO% 9.3 % (1.7-9.3); MPV 9.9 FL (7.4-10.4); NEUT# 4.04 X1000 (1.4-6.5); NEUT% 44.6 % (42.2-75.2); PLT 302 X1000 (130-400); RBC 4.54 XMIL (4.2-5.4); RDW 14.4 % (11.5-14.5); WBC 9.06 X1000 (4.8-10.8)
[2019-08-13] MEDS: PRILOSEC PO SCH (06:18)
[2019-08-13 06:26] VITALS: BP 129/74
[2019-08-13] MEDS: COZAAR PO SCH (09:27)
[2019-08-13] MEDS: NORVASC PO SCH (09:27)
[2019-08-13] MEDS: LOVENOX SUBQ SCH (09:27)
--- NOTE | 2019-08-13 13:05 | PROGRESS NOTE ---
DATE: 08/13/2019 SUBJECTIVE: Patient has no major complaints. OBJECTIVE: Vital signs: Blood pressure 129/74, heart rate of 70, respiratory rate 18, temperature 97.8 degrees, 99% on 2 L. Cardiovascular: Regular rate and rhythm. Pulmonary: Bilateral breath sounds clear to auscultation. GI: Soft, nontender, nondistended. Bowel sounds are positive. DIAGNOSTIC DATA: White count 9, hemoglobin and hematocrit 12 and 40, platelets 302,000. Basic was normal. PROBLEM LIST: Pulmonary embolism and possibly small residual right lower extremity DVT. She is doing better. We are going to switch her to Eliquis. I think she could probably go home on Eliquis. Unfortunately, it is Clemmons Day, but we are trying to make arrangements with our pharmacy about possibly getting her her medications just to bridge her until we can get her to a pharmacist. She is off oxygen. She is able to ambulate without much difficulty, so great improvement. Possibly discharge today if not tomorrow. cc: Yuriy Merritt MD
--- NOTE | 2019-08-13 13:24 | ECHO REPORT ---
ORDER DATE: 08/11/2019 MEASUREMENTS: Septal thickness 1.4, left ventricular internal diameter in diastole 3.6, posterior wall thickness 1.4, left ventricular internal diameter systole 2.5, aortic root 3.5. Left atrium 3.9. SUMMARY: 1. Fair quality study. 2. The aortic valve is trileaflet and opens normally on 2-dimensional images. Peak gradient across aortic valve is 10 to 15 mmHg. There is trace aortic regurgitation. Mild mitral annular calcification is demonstrated. Tricuspid and pulmonic valves are without evidence of structural abnormality with trace tricuspid regurgitation. The estimated systolic PA pressure by Doppler is 30 to 35 mmHg. Aortic root is normal in size. 3. Normal left ventricular chamber size with moderate concentric left hypertrophy is demonstrated. Estimated left ejection fraction appears to be at least 70%. No regional wall motion abnormality is evident. Doppler suggests grade 1 left ventricular diastolic dysfunction. The left atrium is upper normal in size. Right atrium and right ventricle both appear mildly enlarged with reduced right ventricular systolic function. 4. No pericardial effusion. 5. Appearance of inferior vena cava suggests normal central venous pressure. CONCLUSIONS: 1. Trace aortic regurgitation. 2. Mild mitral annular calcification. 3. Trace tricuspid regurgitation with normal systolic PA pressure by Doppler. 4. Moderate concentric left ventricular hypertrophy with estimated left ventricular ejection fraction at least 70%. 5. Grade 1 left ventricular diastolic dysfunction. 6. Mild right-sided chamber enlargement with reduced right ventricular systolic function. cc: Rodri Velasquez MD
--- NOTE | 2019-08-13 17:52 | DISCHARGE SUMMARY ---
ADMISSION DATE: 08/11/2019 DISCHARGE DATE: 08/13/2019 PRIMARY CARE PHYSICIAN: Dr. Markos Dumont. ADMISSION DIAGNOSES: 1. Bilateral pulmonary emboli with saddle embolus. 2. Syncopal episode at work. 3. Hypoxemia. 4. Hypertension. 5. Right conjunctival hemorrhage. 6. Hyperlipidemia. 7. Glaucoma. 8. Hyperglycemia. DISCHARGE DIAGNOSES: 1. Pulmonary emboli and possible small residual right lower extremity deep vein thrombosis. 2. Syncopal episode at work, resolved. 3. Hypoxemia upon arrival, resolved. 4. Hypertension. 5. Right conjunctival hemorrhage aware. 6. Hyperlipidemia. 7. Glaucoma. 8. Hyperglycemia improved with hemoglobin A1c of 6.6. SUMMARY OF FINDINGS: This is a 68-year-old on admission, 69-year-old female at discharge female who presented with complaints of about a week or so of shortness of breath that progressively worsened, not relieved by her inhalers, started experiencing weakness, feeling like she was going to pass out. She was at work on the morning of arrival and did pass out because she could not breathe and when she came to the emergency room she had a D-dimer of 9.53. We did a CTA of the chest that showed bilateral PEs as well as a saddle embolus across the branch point of the main pulmonary artery. She was started on full-dose Lovenox 1 mg/kg subcu b.i.d. We did a hypercoagulable workup. She reported no recent travels. No surgeries. States that she does sit for prolonged times at work and at home and is not very active secondary to her asthma. We did a echocardiogram that showed a ejection fraction of 70% with a grade 1 left ventricular diastolic dysfunction, some trace aortic regurgitation. We did a bilateral lower extremity venous Doppler that showed a possible thrombus in the right gastrocnemius vein, the remainder of the deep veins of the bilateral lower extremity show no evidence of thrombus. Her shortness of breath improved and it is now felt that she can be discharged home on. DISCHARGE MEDICATIONS: She will be on Eliquis 10 mg p.o. b.i.d. #14 with no refills then transition to 5 mg p.o. b.i.d., continue her DuoNeb q.4 hours, Ventolin inhaler 2 puffs q.6 hours p.r.n., Norvasc 2.5 mg p.o. daily, Lasix 20 mg p.o. daily p.r.n. and Cozaar 25 mg p.o. daily. FOLLOWUP: She needs to follow up with her primary care physician in the next week and call their office to schedule an appointment. She verbalized understanding of all discharge instructions. TIME SPENT: 35 minutes. Dictated by JORGE Duggan for Yuriy Merritt MD cc: MD Yuriy Orosco MD
[2019-08-13] MEDS ORDERED: ELIQUIS PO SCH (21:00)
== END 2019-08-13 14:47 | disposition home or self-care (01) | DRG 176 ==
LOC: P.ED 05:36 → P.MEDSURG 11:18
PROVIDERS: ATTEND Internal Medicine